=== PATIENT | female | born 1995 | race Caucasian/White ===

== ENCOUNTER 2017-05-11 20:17 | Emergency (ER) | payer OTHER ==
--- NOTE | 2017-05-11 23:47 | ER Document Report ---
ED General - General Chief Complaint: Constipation Stated Complaint: CONSTIPATION Time Seen by Provider: 05/11/17 22:53 Notes: Patient is a 21-year-old woman who presents with concerns of very irregular bowel movements over the last 1 month. Patient reports that for 1 month she has not had almost no proper bowel movements stating she only has a very small amount and then will go several days without having any additional bowel movements. She has tried Ex-Lax without any relief. She denies any localized abdominal pain, vomiting, and notes that she continues to pass flatus. No history of abdominal surgeries. No vomiting. She has not seen her primary care doctor regarding today's concerns. Nothing seems to improve or worsen her symptoms. TRAVEL OUTSIDE OF THE [place] IN LAST 30 DAYS: No - Related Data Allergies/Adverse Reactions: No Known Allergies Allergy (Verified 05/11/17 20:19) Past Medical History - General Information source: Patient - Social History Smoking Status: Never Smoker Chew tobacco use (# tins/day): No Frequency of alcohol use: Rare Drug Abuse: None Lives with: Spouse/Significant other Family History: Reviewed & Not Pertinent Patient has suicidal ideation: No Patient has homicidal ideation: No Renal/ Medical History: Denies: Hx Peritoneal Dialysis Review of Systems - Review of Systems Notes: Constitutional: Negative for fever. HENT: Negative for sore throat. Eyes: Negative for visual changes. Cardiovascular: Negative for chest pain. Respiratory: Negative for shortness of breath. Gastrointestinal: Negative for abdominal pain, vomiting or diarrhea. Genitourinary: Negative for dysuria. Musculoskeletal: Negative for back pain. Skin: Negative for rash. Neurological: Negative for headaches, weakness or numbness. 10 point ROS negative except as marked above and in HPI. Physical Exam - Vital signs Vitals: Temp Pulse BP Pulse Ox 98.5 F 66 134/59 H 98 05/11/17 20:58 05/11/17 20:58 05/11/17 20:58 05/11/17 20:58 Interpretation: Normal Notes: PHYSICAL EXAMINATION: GENERAL: Well-appearing, well-nourished and in no acute distress. HEAD: Atraumatic, normocephalic. EYES: Pupils equal round and reactive to light, extraocular movements intact, sclera anicteric, conjunctiva are normal. ENT: nares patent, oropharynx clear without exudates. Moist mucous membranes. NECK: Normal range of motion, supple without lymphadenopathy LUNGS: Breath sounds clear to auscultation bilaterally and equal. No wheezes rales or rhonchi. HEART: Regular rate and rhythm without murmurs ABDOMEN: Soft, nontender, normoactive bowel sounds. No guarding, no rebound. No masses appreciated. EXTREMITIES: Normal range of motion, no pitting or edema. No cyanosis. NEUROLOGICAL: No focal neurological deficits. Moves all extremities spontaneously and on command. PSYCH: Normal mood, normal affect. SKIN: Warm, Dry, normal turgor, no rashes or lesions noted. Course - Re-evaluation Re-evalutation: 05/11/17 23:45 Patient presents with not having had a bowel movement in almost 1 month although does clarify that by this she means she has not had a good bowel movement in almost 1 month. She notes intermittent generalized abdominal pain but denies any abdominal pain at time of my assessment. Her abdominal exam is completely benign without any focal areas of tenderness. Her vitals are within normal limits. I do not see any indication for labs or imaging as patient's clinical concern is purely that she is having difficulty having bowel movements and she is looking for medical advice in regards to this topic. I do not suspect small bowel obstruction, mesenteric ischemia, a regional colitis, acute appendicitis, or acute pathology. This is based on exam, vitals and history. Will recommend a MiraLAX preparation at home and provide oral lactulose here in the emergency department. At this time will discharge with return precautions and follow-up recommendations. Verbal discharge instructions given a the bedside and opportunity for questions given. Medication warnings reviewed. Patient is in agreement with this plan and has verbalized understanding of return precautions and the need for primary care follow-up in the next 24-72 hours. - Vital Signs Vital signs: Temp Pulse Resp BP Pulse Ox 98.7 F 62 131/68 H 100 05/12/17 00:39 05/12/17 00:39 05/12/17 00:39 05/12/17 00:39 Discharge - Discharge Clinical Impression: Constipation Qualifiers: Constipation type: unspecified constipation type Qualified Code(s): K59.00 - Constipation, unspecified Condition: Good Disposition: HOME, SELF-CARE Additional Instructions: For your constipation: You should take 8 caps of MiraLAX and placed in 1 liter of Gatorade. Drink one half of the solution and wait 4 hours. If you do not have a bowel movement take the remaining half of the solution. Return if you develop severe abdominal pain, vomiting, pass out, or have any other symptoms that are worrisome to you.
[2017-05-11] MEDS ORDERED: LACTULOSE SYRUP 20 GM/30 ML UDCUP PO ONE (23:56)
[2017-05-12 00:43] VITALS: BP 131/68
== END 2017-05-12 00:44 | disposition home or self-care (01) ==
LOC: ER 20:17
DX: K59.00 Constipation, unspecified (principal)
CPT/HCPCS: 99283